=== PATIENT | male | born 1995 | race Caucasian/White ===

== ENCOUNTER 2018-10-31 01:15 | Emergency (ER) | payer SELFPAY ==
[~2018-10-31] VITALS: Ht 180.3 cm; Wt 77.1 kg
[2018-10-31 01:29] VITALS: BP 119/61
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
--- NOTE | 2018-10-31 02:25 | NUR ---
PATIENT [facility] POLICE DEPT. PATIENT EXAMINED BY DR. STEELE. PATIENT MEDICALLY CLEARED AND RELEASED IN CUSTODY IN STABLE CONDITION. ORIGINAL PRE-BOOK FORM GIVEN TO OFFICER ERNESTINA.
== END 2018-10-31 02:25 ==
LOC: MED 01:15
DX: Z04.1 Encounter for examination and observation following transport accident (principal); Z02.89 Encounter for other administrative examinations; V89.2XXA Person injured in unspecified motor-vehicle accident, traffic, initial encounter; Y93.89 Activity, other specified; Y92.481 Parking lot as the place of occurrence of the external cause; Y99.8 Other external cause status
CPT/HCPCS: 99283